=== PATIENT | female | born 1975 | race Asian ===

== ENCOUNTER → 2017-02-09 | Outpatient (CLI) | payer BC ==
[2017-02-09 10:15] LABS: Basophils # (auto) 0 uL; Basophils % (auto) 0.5 % (0.0-2.0); CONDITION Y; Eosinophils # (auto) 0.2 uL; Eosinophils % (auto) 2.8 % (0.0-7.0); Hematocrit 42.2 % (36.0-46.0); Hemoglobin 14.4 g/dL (12.2-16.2); Lymphocytes # (auto) 2.1 uL; Lymphocytes % (auto) 29.6 % (10.0-50.0); Mean Corpuscular Hemoglobin 28.2 pg (28.0-32.0); Mean Corpuscular Volume 82.8 fL (80.0-100.0); Mean Platelet Volume 9.3 fL (7.4-10.4); Monocytes # (auto) 0.4 uL; Monocytes % (auto) 6.4 % (0.0-12.0); Neutrophils # (auto) 4.2 uL; Neutrophils % (auto) 60.7 % (37.0-80.0); Platelet Count (auto) 317 10^3/uL (140-450); Red Cell Distribution Width 14.2 % (11.6-16.0); White Blood Cell 6.9 10^3/uL (4.4-10.8)
[2017-02-09 10:27] LABS: Urine Bilirubin Negative (Negative); Urine Blood Negative /uL (Negative); Urine Color Yellow (Yellow); Urine Glucose Normal (Normal); Urine Ketone Negative (Negative); Urine Nitrite Negative (Negative); Urine RBC 1 /hpf (0 - 4); Urine Squamous Epithelial Cell FEW /hpf (<5); Urine Urobilinogen Normal (Negative); Urine pH 7.5 (5.0-8.0)
[2017-02-09 10:45] LABS: BUN/Creatinine Ratio 15.9; Bilirubin, Total 0.9 mg/dL (0.2-1.0); Calcium 9.3 mg/dL (8.5-10.1); Potassium 4.3 mmol/L (3.5-5.1); Total Protein 7.8 g/dL (6.4-8.2)
== END | disposition home or self-care (01) ==
LOC: LAB 09:35
PROVIDERS: ATTEND Internal Medicine
DX: I10 Essential (primary) hypertension (principal); K59.00 Constipation, unspecified
CPT/HCPCS: 36415; 80053; 80061; 81001; 82043; 84439; 84443; 85025; 85652

== ENCOUNTER → 2018-10-23 | Outpatient (CLI) | payer BC ==
[2018-10-23 08:55] LABS: Basophils # (auto) 0 uL; Basophils % (auto) 0.6 % (0.0-2.0); Eosinophils # (auto) 0.2 uL; Eosinophils % (auto) 2.9 % (0.0-7.0); Hematocrit 42.5 % (36.0-46.0); Hemoglobin 14.6 g/dL (12.2-16.2); Lymphocytes # (auto) 2.4 uL; Lymphocytes % (auto) 33.8 % (10.0-50.0); Mean Corpuscular Hemoglobin 28.8 pg (28.0-32.0); Mean Corpuscular Hgb Conc. 34.4 g/dL (32.0-36.0); Mean Corpuscular Volume 83.8 fL (80.0-100.0); Monocytes # (auto) 0.5 uL; Monocytes % (auto) 6.4 % (0.0-12.0); Neutrophils % (auto) 56.3 % (37.0-80.0); Nucleated Red Blood Cells % 0.1 %; Platelet Count (auto) 312 10^3/uL (140-450); Red Blood Cells 5.07 10^6/uL (4.0-5.20); Red Cell Distribution Width 12.6 % (11.8-14.3); White Blood Cell 7.1 10^3/uL (4.4-10.8)
[2018-10-23 09:13] LABS: Urine Bacteria FEW /hpf (None Seen); Urine Blood Negative /uL (Negative); Urine Specific Gravity 1.014 (1.001-1.035); Urine WBC 1 /hpf (0 - 5)
[2018-10-23 09:25] LABS: Albumin 3.8 g/dL (3.4-5.0); Calcium 9.4 mg/dL (8.5-10.1); Potassium 4.4 mmol/L (3.5-5.1)
[2018-10-23 09:30] LABS: BUN/Creatinine Ratio 21.6; Bilirubin, Total 0.4 mg/dL (0.2-1.0)
[2018-10-23 09:37] LABS: Free T4 (Free Thyroxine) 1.17 ng/dL (0.89-1.76)
[2018-10-23 09:38] LABS: Follicle Stimulating Hormone 106.25 IU/L (SEE BELOW)
== END | disposition home or self-care (01) ==
LOC: LAB 08:43
PROVIDERS: ATTEND Internal Medicine
DX: N95.1 Menopausal and female climacteric states (principal); R51 Headache
CPT/HCPCS: 36415; 80053; 80061; 81001; 83001; 84439; 84443; 85025; 85652

== ENCOUNTER 2019-09-22 11:07 | Emergency (ER) | payer BC ==
[~2019-09-22] VITALS: Ht 167.6 cm; Wt 82.6 kg
[2019-09-22] MEDS ORDERED: MORPHINE SULF INJ 2 MG/ML SYRINGE 1ML IV ONE (11:30)
[2019-09-22] MEDS ORDERED: ONDANSETRON HCL 4 MG/2 ML VIAL IV ONE (11:30)
[2019-09-22] MEDS ORDERED: CARISOPRODOL 350 MG TAB PO ONE (11:30)
[2019-09-22 11:52] LABS: Basophils # (auto) 0 uL; Basophils % (auto) 0.4 % (0.0-2.0); Eosinophils # (auto) 0.2 uL; Eosinophils % (auto) 2.6 % (0.0-7.0); Hematocrit 40.6 % (36.0-46.0); Hemoglobin 13.9 g/dL (12.2-16.2); Lymphocytes # (auto) 3.1 uL; Lymphocytes % (auto) 35.8 % (10.0-50.0); Mean Corpuscular Hemoglobin 28.3 pg (28.0-32.0); Mean Corpuscular Hgb Conc. 34.3 g/dL (32.0-36.0); Mean Corpuscular Volume 82.7 fL (80.0-100.0); Monocytes # (auto) 0.6 uL; Monocytes % (auto) 6.8 % (0.0-12.0); Neutrophils # (auto) 4.7 uL; Neutrophils % (auto) 54.4 % (37.0-80.0); Nucleated Red Blood Cells % 0.1 %; Platelet Count (auto) 271 10^3/uL (140-450); Red Blood Cells 4.91 10^6/uL (4.0-5.20); Red Cell Distribution Width 13.3 % (11.8-14.3); White Blood Cell 8.7 10^3/uL (4.4-10.8)
[2019-09-22 12:08] LABS: Albumin 3.8 g/dL (3.4-5.0); Calcium 9.1 mg/dL (8.5-10.1); Potassium 4.3 mmol/L (3.5-5.1)
[2019-09-22 12:11] LABS: BUN/Creatinine Ratio 19.1; Bilirubin, Total 0.5 mg/dL (0.2-1.0); Total Protein 7.9 g/dL (6.4-8.2)
[2019-09-22] MEDS ORDERED: LORazepam 2MG/ML-1ML VIAL IV ONE (13:15)
[2019-09-22 13:31] LABS: INR 0.96 (0.9-1.15); Partial Thromboplastin Time 27.3 sec (23.64-32.05)
[2019-09-22 14:52] VITALS: BP 126/80
== END 2019-09-22 14:56 | disposition home or self-care (01) ==
LOC: EEVIPCON 11:07 → ER 11:07
DX: S86.912A Strain of unspecified muscle(s) and tendon(s) at lower leg level, left leg, initial encounter (principal); X58.XXXA Exposure to other specified factors, initial encounter; Y93.89 Activity, other specified; Y99.8 Other external cause status; Y92.89 Other specified places as the place of occurrence of the external cause
CPT/HCPCS: 36415; 72131; 73200; 80053; 83880; 84484; 85025; 85610; 85730; 93005; 93971; 96374; 96375; 99284; J2270; J2405

== ENCOUNTER → 2020-02-13 | Outpatient (CLI) | payer BC ==
[2020-02-13 09:18] LABS: Basophils # (auto) 0 10 ^3/uL (0-0.2); Basophils % (auto) 0.4 % (0.0-2.0); Eosinophils # (auto) 0.1 10 ^3/uL (0-0.8); Eosinophils % (auto) 2.4 % (0.0-7.0); Hematocrit 41.7 % (36.0-46.0); Hemoglobin 14.4 g/dL (12.2-16.2); Lymphocytes # (auto) 2.2 10 ^3/uL (0.4-5.4); Lymphocytes % (auto) 40.1 % (10.0-50.0); Mean Corpuscular Hemoglobin 28.5 pg (28.0-32.0); Mean Corpuscular Hgb Conc. 34.4 g/dL (32.0-36.0); Mean Corpuscular Volume 82.7 fL (80.0-100.0); Monocytes # (auto) 0.4 10 ^3/uL (0-1.3); Monocytes % (auto) 7.4 % (0.0-12.0); Neutrophils # (auto) 2.7 10 ^3/uL (1.6-8.6); Neutrophils % (auto) 49.7 % (37.0-80.0); Platelet Count (auto) 277 10^3/uL (140-450); Red Blood Cells 5.04 10^6/uL (4.0-5.20); Red Cell Distribution Width 13.2 % (11.8-14.3); White Blood Cell 5.4 10^3/uL (4.4-10.8)
[2020-02-13 09:40] LABS: Urine Bacteria MOD /hpf (None Seen); Urine Blood Negative /uL (Negative); Urine Specific Gravity 1.015 (1.001-1.035); Urine WBC 3 /hpf (0 - 5)
[2020-02-13 09:44] LABS: Albumin 3.9 g/dL (3.4-5.0); Calcium 9.5 mg/dL (8.5-10.1); Potassium 4.3 mmol/L (3.5-5.1)
[2020-02-13 09:50] LABS: BUN/Creatinine Ratio 18.9; Bilirubin, Total 0.5 mg/dL (0.2-1.0); Total Protein 7.8 g/dL (6.4-8.2)
== END | disposition home or self-care (01) ==
LOC: LAB 08:45
PROVIDERS: ATTEND Internal Medicine
DX: E55.9 Vitamin D deficiency, unspecified (principal); R53.83 Other fatigue; R35.1 Nocturia
CPT/HCPCS: 36415; 80053; 80061; 81001; 82306; 84439; 84443; 85025; 85652

== ENCOUNTER → 2020-03-01 | Outpatient (CLI) | payer OTHER | END | disposition home or self-care (01) | LOC: LAB 17:10 | PROVIDERS: ATTEND Physician Assistant | DX: Z20.828 Contact with and (suspected) exposure to other viral communicable diseases (principal) | CPT/HCPCS: 87635 ==

== ENCOUNTER → 2020-06-30 | Outpatient (CLI) | payer OTHER ==
[2020-06-30 14:00] LABS: Folate (Folic Acid) 12.16 ng/mL (5.38-24)
== END | disposition home or self-care (01) ==
LOC: LAB 12:24
PROVIDERS: ATTEND Internal Medicine
DX: D64.9 Anemia, unspecified (principal)
CPT/HCPCS: 82607; 82746

== ENCOUNTER → 2020-07-01 | Outpatient (CLI) | payer OTHER | END | disposition home or self-care (01) | LOC: LAB 12:15 | PROVIDERS: ATTEND Nurse Practitioner Family | DX: Z20.828 Contact with and (suspected) exposure to other viral communicable diseases (principal) | CPT/HCPCS: C9803; U0003 ==

== ENCOUNTER → 2020-07-07 | Outpatient (CLI) | payer OTHER | END | disposition home or self-care (01) | LOC: LAB 18:08 | PROVIDERS: ATTEND Nurse Practitioner Family | DX: Z20.828 Contact with and (suspected) exposure to other viral communicable diseases (principal) | CPT/HCPCS: C9803; U0003 ==

== ENCOUNTER → 2020-07-07 | Outpatient (CLI) | payer BC ==
[2020-07-07 14:55] LABS: Basophils # (auto) 0.1 10 ^3/uL (0-0.2); Basophils % (auto) 0.6 % (0.0-2.0); Eosinophils # (auto) 0.2 10 ^3/uL (0-0.8); Eosinophils % (auto) 1.9 % (0.0-7.0); Hematocrit 43.6 % (36.0-46.0); Hemoglobin 15.1 g/dL (12.2-16.2); Lymphocytes # (auto) 3.8 10 ^3/uL (0.4-5.4); Lymphocytes % (auto) 36.8 % (10.0-50.0); Mean Corpuscular Hemoglobin 28.6 pg (28.0-32.0); Mean Corpuscular Hgb Conc. 34.7 g/dL (32.0-36.0); Mean Corpuscular Volume 82.7 fL (80.0-100.0); Monocytes # (auto) 0.7 10 ^3/uL (0-1.3); Neutrophils # (auto) 5.5 10 ^3/uL (1.6-8.6); Neutrophils % (auto) 53.7 % (37.0-80.0); Nucleated Red Blood Cells % 0.1 %; Platelet Count (auto) 336 10^3/uL (140-450); Red Blood Cells 5.27 10^6/uL (4.0-5.20); Red Cell Distribution Width 12.9 % (11.8-14.3); White Blood Cell 10.3 10^3/uL (4.4-10.8)
[2020-07-07 15:23] LABS: Albumin 4.1 g/dL (3.4-5.0); CRP High Sensitivity 0.13 mg/dL (< 0.3); Calcium 9.5 mg/dL (8.5-10.1); Potassium 4.4 mmol/L (3.5-5.1)
[2020-07-07 15:26] LABS: BUN/Creatinine Ratio 17.8; Bilirubin, Total 0.6 mg/dL (0.2-1.0); Total Protein 8.6 g/dL (6.4-8.2)
== END | disposition home or self-care (01) ==
LOC: LAB 14:42
PROVIDERS: ATTEND Internal Medicine
DX: J40 Bronchitis, not specified as acute or chronic (principal)
CPT/HCPCS: 36415; 80053; 83615; 85025; 86141; 87804

== ENCOUNTER → 2021-09-01 | Outpatient (CLI) | payer BC | END | disposition home or self-care (01) | LOC: LAB 09:24 | PROVIDERS: ATTEND Physician Assistant | DX: U07.1 COVID-19 (principal) | CPT/HCPCS: C9803; U0003 ==

== ENCOUNTER 2021-09-08 10:18 | Inpatient (IN) | payer BC ==
[~2021-09-08] VITALS: Ht 170.2 cm; Wt 83.7 kg
[2021-09-08 11:42] LABS: Basophils # (auto) 0 10 ^3/uL (0-0.2); Basophils % (auto) 0.6 % (0.0-2.0); Eosinophils # (auto) 0.1 10 ^3/uL (0-0.8); Eosinophils % (auto) 1.8 % (0.0-7.0); Hematocrit 40.5 % (36.0-46.0); Hemoglobin 14.1 g/dL (12.2-16.2); Lymphocytes # (auto) 1.7 10 ^3/uL (0.4-5.4); Lymphocytes % (auto) 24.4 % (10.0-50.0); Mean Corpuscular Hemoglobin 28.6 pg (28.0-32.0); Mean Corpuscular Hgb Conc. 34.8 g/dL (32.0-36.0); Mean Corpuscular Volume 82.2 fL (80.0-100.0); Monocytes # (auto) 0.3 10 ^3/uL (0-1.3); Monocytes % (auto) 4.7 % (0.0-12.0); Neutrophils # (auto) 4.7 10 ^3/uL (1.6-8.6); Neutrophils % (auto) 68.5 % (37.0-80.0); Nucleated Red Blood Cells % 0.1 %; Red Blood Cells 4.93 10^6/uL (4.0-5.20); Red Cell Distribution Width 13.1 % (11.8-14.3); White Blood Cell 6.9 10^3/uL (4.4-10.8)
[2021-09-08 11:51] LABS: Potassium 4.3 mmol/L (3.5-5.1)
[2021-09-08 12:00] LABS: Albumin 3.8 g/dL (3.4-5.0); BUN/Creatinine Ratio 14.5; Bilirubin, Total 0.4 mg/dL (0.2-1.0); Calcium 9.3 mg/dL (8.5-10.1); Total Protein 7.8 g/dL (6.4-8.2)
[2021-09-08] MEDS ORDERED: cloNIDine HCL 0.1 MG TAB PO ONE (12:15)
[2021-09-08] MEDS ORDERED: ONDANSETRON ODT 4 MG TAB PO ONE (12:15)
[2021-09-08] MEDS ORDERED: SODIUM CHLORIDE 0.9% 500 ML IV ONE (12:45)
[2021-09-08] MEDS ORDERED: HYDROcodone-ACET 5/325MG TAB PO PRN (13:00)
[2021-09-08] MEDS ORDERED: MORPHINE SULFATE INJECTION 2 MG/ML SYRG IV PRN (13:00)
[2021-09-08] MEDS ORDERED: LORazepam 0.5 MG TAB PO PRN (13:00)
[2021-09-08] MEDS ORDERED: ALUM & MAG HYDROX-SIMETH LIQ(MAALOX) 30 ML PO PRN (13:00)
[2021-09-08] MEDS ORDERED: cloNIDine HCL 0.1 MG TAB PO PRN (13:00)
[2021-09-08] MEDS ORDERED: hydrALAZINE HCL 20 MG/ML VL IV PRN (13:00)
[2021-09-08] MEDS: SODIUM CHLOR 0.9% PF (SALINE LOCK) 10ML VIAL/SYR IV SCH ×2 (15:10→22:09)
[2021-09-08] MEDS: ONDANSETRON HCL 4 MG/2 ML VIAL IV PRN ×2 (15:19→21:59)
[2021-09-08] MEDS ORDERED: ASCORBIC ACID 500 MG TAB PO ONE (17:30)
[2021-09-08] MEDS ORDERED: CHOLECALCIFEROL (VITD3) 2,000 UNIT CAP/TAB PO ONE (17:30)
[2021-09-08] MEDS ORDERED: LISINOPRIL 10 MG TAB PO ONE (17:30)
[2021-09-08] MEDS ORDERED: MECLIZINE HCL 25 MG TAB PO ONE (17:30)
[2021-09-08 21:25] VITALS: BP 147/90
[2021-09-09 05:00] VITALS: BP 116/73
[2021-09-09 05:53] LABS: Basophils # (auto) 0 10 ^3/uL (0-0.2); Basophils % (auto) 0.4 % (0.0-2.0); Eosinophils # (auto) 0.2 10 ^3/uL (0-0.8); Eosinophils % (auto) 1.8 % (0.0-7.0); Hematocrit 38.2 % (36.0-46.0); Lymphocytes # (auto) 2.9 10 ^3/uL (0.4-5.4); Lymphocytes % (auto) 34.3 % (10.0-50.0); Mean Corpuscular Volume 82.5 fL (80.0-100.0); Monocytes # (auto) 0.6 10 ^3/uL (0-1.3); Monocytes % (auto) 6.8 % (0.0-12.0); Neutrophils # (auto) 4.8 10 ^3/uL (1.6-8.6); Neutrophils % (auto) 56.7 % (37.0-80.0); Red Blood Cells 4.63 10^6/uL (4.0-5.20); Red Cell Distribution Width 12.9 % (11.8-14.3); White Blood Cell 8.4 10^3/uL (4.4-10.8)
[2021-09-09] MEDS: SODIUM CHLOR 0.9% PF (SALINE LOCK) 10ML VIAL/SYR IV SCH ×3 (06:10→21:56)
[2021-09-09 06:36] LABS: Calcium 8.8 mg/dL (8.5-10.1); Potassium 3.7 mmol/L (3.5-5.1)
[2021-09-09 06:38] LABS: BUN/Creatinine Ratio 17.1
[2021-09-09 07:28] LABS: Urine Bacteria MOD /hpf (None Seen); Urine Blood Negative /uL (Negative); Urine Mucus FEW (None Seen); Urine Specific Gravity 1.013 (1.001-1.035); Urine WBC 36 /hpf (0 - 5)
[2021-09-09 09:00] VITALS: BP 130/90
[2021-09-09] MEDS ORDERED: MECLIZINE HCL 25 MG TAB PO SCH (10:00)
[2021-09-09] MEDS ORDERED: LISINOPRIL 10 MG TAB PO SCH (10:00)
[2021-09-09] MEDS: CHOLECALCIFEROL (VITD3) 2,000 UNIT CAP/TAB PO SCH (10:33)
[2021-09-09] MEDS: ASCORBIC ACID 500 MG TAB PO SCH (10:33)
[2021-09-09 13:00] VITALS: BP 145/101
[2021-09-09] MEDS ORDERED: ERGOCALCIFEROL 50,000 UNIT(1.25MG) CAP PO SCH (13:30)
[2021-09-09] MEDS ORDERED: HCTZ 25 MG TAB PO ONE (13:30)
[2021-09-09] MEDS ORDERED: levoFLOXacin 500 MG TAB PO ONE (13:30)
[2021-09-09] MEDS: MECLIZINE HCL 25 MG TAB PO SCH ×2 (15:12→21:56)
[2021-09-09 17:00] VITALS: BP 127/88
[2021-09-09 22:00] VITALS: BP 113/71
[2021-09-10 05:00] VITALS: BP 129/66
[2021-09-10] MEDS: SODIUM CHLOR 0.9% PF (SALINE LOCK) 10ML VIAL/SYR IV SCH ×3 (06:00→20:55)
[2021-09-10] MEDS: MECLIZINE HCL 25 MG TAB PO SCH ×3 (06:30→20:56)
[2021-09-10] MEDS: ACETAMINOPHEN 325 MG TAB PO PRN ×2 (08:43→14:28)
[2021-09-10 09:00] VITALS: BP 126/86
[2021-09-10] MEDS: ASCORBIC ACID 500 MG TAB PO SCH (10:20)
[2021-09-10] MEDS: CHOLECALCIFEROL (VITD3) 2,000 UNIT CAP/TAB PO SCH (10:20)
[2021-09-10] MEDS: levoFLOXacin 500 MG TAB PO SCH (10:21)
[2021-09-10] MEDS: LISINOPRIL 10 MG TAB PO SCH (10:21)
[2021-09-10] MEDS: HCTZ 25 MG TAB PO SCH (10:22)
[2021-09-10 13:00] VITALS: BP 118/84
[2021-09-10 16:48] VITALS: BP 118/82
[2021-09-10 22:00] VITALS: BP 119/82
[2021-09-11] MEDS: ACETAMINOPHEN 325 MG TAB PO PRN (04:19)
[2021-09-11 05:00] VITALS: BP 126/86
[2021-09-11] MEDS: SODIUM CHLOR 0.9% PF (SALINE LOCK) 10ML VIAL/SYR IV SCH ×2 (06:18→13:34)
[2021-09-11] MEDS: MECLIZINE HCL 25 MG TAB PO SCH ×2 (06:19→13:34)
[2021-09-11 09:00] VITALS: BP 123/85
[2021-09-11] MEDS: levoFLOXacin 500 MG TAB PO SCH (09:56)
[2021-09-11] MEDS: LISINOPRIL 10 MG TAB PO SCH (09:57)
[2021-09-11] MEDS: HCTZ 25 MG TAB PO SCH (09:57)
[2021-09-11] MEDS: CHOLECALCIFEROL (VITD3) 2,000 UNIT CAP/TAB PO SCH (09:58)
[2021-09-11] MEDS: ASCORBIC ACID 500 MG TAB PO SCH (09:58)
[2021-09-11 12:40] VITALS: BP 128/81
[2021-09-11 14:15] VITALS: BP 117/85
[2021-09-11 16:21] VITALS: BP 123/85
== END 2021-09-11 18:10 | disposition home or self-care (01) | DRG 178 ==
LOC: EEVIPCON 10:18 → ER 10:18 → TELE 12:50 → TELE-WESTW 21:19 → TELE-CENTR 21:24 → TELE-WESTW 09-09 05:07
PROVIDERS: ADMIT Internal Medicine; ATTEND Internal Medicine
DX: U07.1 COVID-19 (principal); N39.0 Urinary tract infection, site not specified; I10 Essential (primary) hypertension; F41.9 Anxiety disorder, unspecified; H81.10 Benign paroxysmal vertigo, unspecified ear; H81.20 Vestibular neuronitis, unspecified ear; Z82.49 Family history of ischemic heart disease and other diseases of the circulatory system
CPT/HCPCS: 36415; 70450; 71045; 80048; 80053; 81001; 82306; 83036; 84443; 84484; 85025; 87426; 93306; 96360; G0378; J2405; Q0162

== ENCOUNTER → 2022-05-29 | Outpatient (CLI) | payer BC ==
[2022-05-29 15:25] LABS: Basophils # (auto) 0.1 10 ^3/uL (0-0.2); Eosinophils # (auto) 0.2 10 ^3/uL (0-0.8); Eosinophils % (auto) 2.8 % (0.0-7.0); Hematocrit 43.1 % (36.0-46.0); Hemoglobin 14.6 g/dL (12.2-16.2); Lymphocytes # (auto) 3.1 10 ^3/uL (0.4-5.4); Lymphocytes % (auto) 37.4 % (10.0-50.0); Mean Corpuscular Hemoglobin 27.9 pg (28.0-32.0); Mean Corpuscular Hgb Conc. 33.9 g/dL (32.0-36.0); Mean Corpuscular Volume 82.2 fL (80.0-100.0); Monocytes # (auto) 0.6 10 ^3/uL (0-1.3); Monocytes % (auto) 7.3 % (0.0-12.0); Neutrophils # (auto) 4.3 10 ^3/uL (1.6-8.6); Neutrophils % (auto) 51.5 % (37.0-80.0); Nucleated Red Blood Cells % 0.1 %; Red Blood Cells 5.24 10^6/uL (4.0-5.20); White Blood Cell 8.3 10^3/uL (4.4-10.8)
[2022-05-29 15:48] LABS: Albumin 3.9 g/dL (3.4-5.0); Calcium 9.1 mg/dL (8.5-10.1); Potassium 4.6 mmol/L (3.5-5.1)
[2022-05-29 15:50] LABS: BUN/Creatinine Ratio 19.4
[2022-05-29 15:53] LABS: Bilirubin, Total 0.5 mg/dL (0.2-1.0); Total Protein 7.7 g/dL (6.4-8.2)
[2022-05-29 16:21] LABS: Free T4 (Free Thyroxine) 1.17 ng/dL (0.89-1.76)
[2022-05-29 16:22] LABS: Folate (Folic Acid) 22.21 ng/mL (5.38-24)
== END | disposition home or self-care (01) ==
LOC: LAB 15:12
PROVIDERS: ATTEND Internal Medicine
DX: I10 Essential (primary) hypertension (principal)
CPT/HCPCS: 36415; 80053; 82306; 82607; 82746; 84439; 84443; 85025

== ENCOUNTER → 2022-08-01 | Outpatient (CLI) | payer BC | END | disposition home or self-care (01) | LOC: XYW 07:32 | PROVIDERS: ATTEND Internal Medicine | DX: I08.0 Rheumatic disorders of both mitral and aortic valves (principal); R06.02 Shortness of breath; R07.89 Other chest pain | CPT/HCPCS: 93306 ==

== ENCOUNTER → 2022-11-28 | Outpatient (CLI) | payer BC ==
[2022-11-28 14:40] LABS: Basophils # (auto) 0 10 ^3/uL (0-0.2); Basophils % (auto) 0.6 % (0.0-2.0); Eosinophils # (auto) 0.2 10 ^3/uL (0-0.8); Eosinophils % (auto) 2.2 % (0.0-7.0); Hematocrit 40.8 % (36.0-46.0); Lymphocytes # (auto) 3.1 10 ^3/uL (0.4-5.4); Lymphocytes % (auto) 37.6 % (10.0-50.0); Mean Corpuscular Hemoglobin 28.7 pg (28.0-32.0); Mean Corpuscular Hgb Conc. 34.4 g/dL (32.0-36.0); Mean Corpuscular Volume 83.3 fL (80.0-100.0); Monocytes # (auto) 0.6 10 ^3/uL (0-1.3); Neutrophils # (auto) 4.3 10 ^3/uL (1.6-8.6); Neutrophils % (auto) 52.6 % (37.0-80.0); Nucleated Red Blood Cells % 0.4 %; Red Blood Cells 4.89 10^6/uL (4.0-5.20); Red Cell Distribution Width 13.7 % (11.8-14.3); White Blood Cell 8.2 10^3/uL (4.4-10.8)
[2022-11-28 15:10] LABS: Follicle Stimulating Hormone 70.56 IU/L (SEE BELOW); Leuteinizing Hormone 38.8 IU/L
== END | disposition home or self-care (01) ==
LOC: LAB 14:05
PROVIDERS: ATTEND Obstetrics & Gynecology
DX: N95.1 Menopausal and female climacteric states (principal)
CPT/HCPCS: 36415; 82652; 82670; 83001; 83002; 84403; 84443; 85025

== ENCOUNTER → 2023-06-27 | Outpatient (CLI) | payer BC ==
[2023-06-27 08:46] LABS: Basophils # (auto) 0 10 ^3/uL (0-0.2); Basophils % (auto) 0.7 % (0.0-2.0); Eosinophils # (auto) 0.2 10 ^3/uL (0-0.8); Eosinophils % (auto) 3.4 % (0.0-7.0); Hematocrit 41.1 % (36.0-46.0); Hemoglobin 14.2 g/dL (12.2-16.2); Lymphocytes # (auto) 2.7 10 ^3/uL (0.4-5.4); Lymphocytes % (auto) 38.4 % (10.0-50.0); Mean Corpuscular Hemoglobin 28.2 pg (28.0-32.0); Mean Corpuscular Hgb Conc. 34.5 g/dL (32.0-36.0); Mean Corpuscular Volume 81.8 fL (80.0-100.0); Monocytes # (auto) 0.4 10 ^3/uL (0-1.3); Monocytes % (auto) 6.2 % (0.0-12.0); Neutrophils # (auto) 3.7 10 ^3/uL (1.6-8.6); Neutrophils % (auto) 51.3 % (37.0-80.0); Nucleated Red Blood Cells % 0.1 %; Red Blood Cells 5.03 10^6/uL (4.0-5.20); Red Cell Distribution Width 12.9 % (11.8-14.3); White Blood Cell 7.2 10^3/uL (4.4-10.8)
[2023-06-27 08:51] LABS: Urine Bacteria NONE SEEN /hpf (None Seen); Urine Blood Negative /uL (Negative); Urine Clarity HAZY (Clear); Urine Color Yellow (Yellow); Urine Hyaline Cast FEW /lpf (0 - 2); Urine Mucus FEW (None Seen); Urine Protein, UAD Negative (Negative); Urine Specific Gravity 1.021 (1.001-1.035); Urine Urobilinogen Normal (Negative); Urine WBC 4 /hpf (0 - 5)
[2023-06-27 09:31] LABS: Alanine Aminotransferase 65 U/L (7-40); Albumin 4.6 g/dL (3.2-4.8); Alkaline Phosphatase 130 U/L (46-116); Anion Gap 7 (5-15); Aspartate Aminotransferase 23 U/L (13-40); BUN/Creatinine Ratio 21.2 (10.0-20.0); Blood Urea Nitrogen 14 mg/dL (9-23); Calcium 9.6 mg/dL (8.5-10.1); Carbon Dioxide 24 mmol/L (20-30); Chloride 108 mmol/L (98-107); Glucose 98 mg/dL (74-106); LDL Cholesterol 134 mg/dL (< 100); Potassium 4.3 mmol/L (3.5-5.1); Sodium 139 mmol/L (136-145); Triglycerides 149 mg/dL (< 150)
[2023-06-27 09:32] LABS: Bilirubin, Total 0.6 mg/dL (0.2-1.0); Cholesterol 195 mg/dL (< 200); HDL Cholesterol 45 mg/dL (40-59); Total Protein 7.4 g/dL (5.7-8.2)
[2023-06-27 09:35] LABS: Free T4 (Free Thyroxine) 1.07 ng/dL (0.89-1.76)
== END | disposition home or self-care (01) ==
LOC: LAB 08:37
PROVIDERS: ATTEND Internal Medicine
DX: I10 Essential (primary) hypertension (principal)
CPT/HCPCS: 36415; 80053; 80061; 81001; 82306; 82607; 83036; 84439; 84443; 85025

== ENCOUNTER → 2024-03-07 | Outpatient (CLI) | payer BC ==
[2024-03-07 08:56] LABS: Urine Bacteria None Seen /hpf (None Seen)
[2024-03-07 09:09] LABS: Basophils # (auto) 0.1 10 ^3/uL (0-0.2); Basophils % (auto) 0.8 % (0.0-2.0); Eosinophils # (auto) 0.2 10 ^3/uL (0-0.8); Eosinophils % (auto) 2.8 % (0.0-7.0); Hematocrit 40.8 % (36.0-46.0); Hemoglobin 14.2 g/dL (12.2-16.2); Lymphocytes # (auto) 2.4 10 ^3/uL (0.4-5.4); Lymphocytes % (auto) 34.6 % (10.0-50.0); Mean Corpuscular Hemoglobin 28.1 pg (28.0-32.0); Mean Corpuscular Hgb Conc. 34.8 g/dL (32.0-36.0); Mean Corpuscular Volume 80.7 fL (80.0-100.0); Monocytes # (auto) 0.4 10 ^3/uL (0-1.3); Monocytes % (auto) 6.2 % (0.0-12.0); Neutrophils # (auto) 3.8 10 ^3/uL (1.6-8.6); Neutrophils % (auto) 55.6 % (37.0-80.0); Nucleated Red Blood Cells % 0.1 %; Red Blood Cells 5.05 10^6/uL (4.0-5.20); White Blood Cell 6.8 10^3/uL (4.4-10.8)
[2024-03-07 09:17] LABS: Urine Blood Negative /uL (Negative); Urine Clarity Clear (Clear); Urine Color Yellow (Yellow); Urine Mucus FEW (None Seen); Urine Protein, UAD Negative (Negative); Urine Specific Gravity 1.018 (1.001-1.035); Urine Urobilinogen Normal (Negative); Urine WBC 1 /hpf (0 - 5); Urine pH 5.5 (5.0-9.0)
[2024-03-07 09:32] LABS: Alanine Aminotransferase 31 U/L (7-40); Albumin 4.7 g/dL (3.2-4.8); Alkaline Phosphatase 138 U/L (46-116); Anion Gap 7 (5-15); Aspartate Aminotransferase 17 U/L (13-40); BUN/Creatinine Ratio 15.5 (10.0-20.0); Blood Urea Nitrogen 11 mg/dL (9-23); Calcium 10.1 mg/dL (8.7-10.4); Carbon Dioxide 24 mmol/L (20-30); Chloride 107 mmol/L (98-107); Cholesterol 206 mg/dL (< 200); Glucose 105 mg/dL (74-106); LDL Cholesterol 141 mg/dL (< 100); Potassium 4.3 mmol/L (3.5-5.1); Sodium 138 mmol/L (136-145); Triglycerides 169 mg/dL (< 150)
[2024-03-07 09:33] LABS: Bilirubin, Total 0.7 mg/dL (0.2-1.0); HDL Cholesterol 48 mg/dL (40-59); Total Protein 7.3 g/dL (5.7-8.2)
[2024-03-07 10:30] LABS: Folate (Folic Acid) 17.01 ng/mL (>5.38)
== END | disposition home or self-care (01) ==
LOC: LAB 08:22
PROVIDERS: ATTEND Internal Medicine
DX: Z12.11 Encounter for screening for malignant neoplasm of colon (principal); I10 Essential (primary) hypertension; E78.5 Hyperlipidemia, unspecified; R06.02 Shortness of breath; E55.9 Vitamin D deficiency, unspecified
CPT/HCPCS: 36415; 80053; 80061; 81001; 82306; 82607; 82746; 83036; 83525; 83880; 84443; 85025; 85379

== ENCOUNTER → 2024-03-11 | Outpatient (CLI) | payer BC | END | disposition home or self-care (01) | LOC: XYW 07:38 | PROVIDERS: ATTEND Internal Medicine | DX: I08.0 Rheumatic disorders of both mitral and aortic valves (principal); I10 Essential (primary) hypertension; R06.02 Shortness of breath | CPT/HCPCS: 93306 ==

== ENCOUNTER → 2024-05-21 | Outpatient (CLI) | payer BC ==
[2024-05-21 15:13] LABS: Alanine Aminotransferase 39 U/L (7-40); Alkaline Phosphatase 135 U/L (46-116); Anion Gap 8 (5-15); BUN/Creatinine Ratio 15.1 (10.0-20.0); Blood Urea Nitrogen 11 mg/dL (9-23); Calcium 9.7 mg/dL (8.7-10.4); Carbon Dioxide 27 mmol/L (20-31); Chloride 105 mmol/L (98-107); Glucose 138 mg/dL (74-106); Potassium 3.9 mmol/L (3.5-5.1); Sodium 140 mmol/L (136-145)
[2024-05-21 15:14] LABS: Albumin 4.6 g/dL (3.2-4.8); Amylase 52 U/L (30-118); Aspartate Aminotransferase 19 U/L (13-40)
[2024-05-21 15:15] LABS: Bilirubin, Total 0.6 mg/dL (0.2-1.0); Total Protein 7.4 g/dL (5.7-8.2)
[2024-05-21 15:39] LABS: Lipase 71 U/L (12-53)
== END | disposition home or self-care (01) ==
LOC: LAB 13:30
PROVIDERS: ATTEND Internal Medicine
DX: R10.9 Unspecified abdominal pain (principal)
CPT/HCPCS: 36415; 80053; 82150; 83690

== ENCOUNTER 2024-06-30 08:13 | Inpatient (IN) | payer BC ==
[~2024-06-30] VITALS: Ht 165.1 cm; Wt 93.0 kg
--- NOTE | 2024-06-30 08:32 | ED.PDOC ---
History of Present Illness HPI Comments 49Y F with PMHx HTN, TIA, vertigo, x2, and endometrial ablation presents to ED via EMS for chief complaint dizziness since this morning after waking up. Pt states she feels fine while laying down but is unable to get up without feeling the dizziness. Pt describes dizziness as "everything spinning a round her". Upon EMS arrival, pt became nauseous and was given Zofran 4mg by EMS. BP was 140/80 with EMS. Pt says she felt fine yesterday and went to sleep without any symptoms. Pt denies headache. No known allergies. Chief Complaint: Dizziness Time Seen by MD: 08:16 Primary Care Provider: GUILLERMO Smith Notes: Medications, Allergies Allergies: Coded Allergies: NO KNOWN ALLERGIES (Unverified , 08/29/22) Home Meds No Active Prescriptions or Reported Meds Information Source: Patient Mode of Arrival: EMS Severity: Mild Timing: Hours Duration: Since onset Prehospital treatment: Other (zofran 4mg) Past Medical History PAST MEDICAL HISTORY: HTN, TIA Past Medical History (Other): Vertigo Surgical History: Denies all surgeries MANAGER REVENUE History: No Pertinent MANAGER REVENUE History Family History Family History: Reviewed,noncontributory to illness, Family hx of HTN Social History Smoker: Non-Smoker Alcohol: Denies ETOH Use Drugs: Denies Drug Use Lives In: Home Constitutional: denies: chills, diaphoresis, fatigue, fever, malaise, sweats, weakness, others EENTM: denies: blurred vision, double vision, ear bleeding, ear discharge, ear drainage, ear pain, ear ringing, eye pain, eye redness, hearing loss, mouth pain, mouth swelling, nasal discharge, nose bleeding, nose congestion, nose pain, photophobia, tearing, throat pain, throat swelling, voice changes, others Respiratory: denies: cough, hemoptysis, orthopnea, SOB at rest, shortness of breath, SOB with excertion, stridor, wheezing, others Cardiovascular: denies: chest pain, dizzy spells, diaphoresis, Dyspnea on exertion, edema, irregular heart beat, left arm pain, lightheadedness, palpitations, PND, syncope, others Gastrointestinal: reports: nausea; denies: abdomen distended, abdominal pain, blood streaked bowels, constipated, diarrhea, dysphagia, difficulty swallowing, hematemesis, melena, poor appetite, poor fluid intake, rectal bleeding, rectal pain, vomiting, others Genitourinary: denies: abnormal vagina bleeding, burning, dyspareunia, dysuria, flank pain, frequency, hematuria, incontinence, pain, , vagina discharge, urgency, others Neurological: reports: dizziness; denies: fainting, headache, left sided numbness, left sided weakness, numbness, paresthesia, pre-existing deficit, right sided numbness, right sided weakness, seizure, speech problems, tingling, tremors, weakness, others Musculoskeletal: denies: back pain, gout, joint pain, joint swelling, muscle pain, muscle stiffness, neck pain, others Integumetry: denies: bruises, change in color, change in hair/nails, dryness, laceration, lesions, lumps, rash, wounds, others Allergic/Immunocompromised: denies: Difficulty Healing, Frequent Infections, Hives, Itching, others Hematologic/Lymphatic: denies: anemia, blood clots, easy bleeding, easy bruising, swollen glands, others Endocrine: denies: excessive hunger, excessive sweating, excessive thirst, excessive urination, flushing, intolerance to cold, intolerance to heat, unexplained weight gain, unexplained weight loss, others Psychiatric: denies: anxiety, bipolar disorder, depression, hopeless, panic disorder, schizophrenia, sleepless, suicidal, others All Other Systems: Reviewed and Negative Physical Exam General Appearance: Moderate Distress, Normal HEENT: Normal ENT Inspection, Pharynx Normal, TMs Normal Neck: Full Range of Motion, Non-Tender, Normal, Normal Inspection Respiratory: Chest Non-Tender, Lungs Clear, No Accessory Muscle Use, No Respiratory Distress, Normal Breath Sounds Cardiovascular: No Edema, No JVD, No Murmur, No Gallop, Normal Peripheral Pulses, Regular Rate/Rhythm Breast Exam: Deferred Gastrointestinal: No Organomegaly, Non Tender, No Pulsatile Mass, Normal Bowel Sounds, Soft Genitalia: Deferred Pelvic: Deferred Rectal: Deferred Extremities: No calf tenderness, Normal capillary refill, Normal inspection, Normal range of motion, Non-tender, No pedal edema Musculoskeletal : Apperance: Normal Neurologic: Alert, No Motor Deficits, Normal Affect, Normal Mood, No Sensory Deficits Cerebellar Function: NOT DONE Reflexes: NOT DONE Skin: Dry, Normal Color, Warm Peripheral Pulses: 3+ Radial (R), 3+ Radial (L) Lymphatic: No Adenopathy Was a procedure done? Was a procedure done?: No Differential Dx Considerations may include: TIA Autonomic disorder X-Ray, Labs, Meds, VS Vital Signs Date Time Temp Pulse Resp B/P (MAP) Pulse Ox O2 Delivery O2 Flow Rate FiO2 06/30/24 08:48 77 19 97 Room Air* 0 21 06/30/24 08:48 77 19 134/80 (98) 97 06/30/24 08:16 75 06/30/24 08:15 98.6 77 18 158/103 (121) 100 Lab Test 06/30/24 09:40 06/30/24 08:36 Range/Units Urine Color Light-yellow Yellow Urine Clarity Clear Clear Urine pH 6.0 5.0-9.0 Urine Specific [place] 1.009 1.001-1.035 Urine Protein Negative Negative Urine Ketones Negative Negative Urine Blood Negative Negative /uL Urine Nitrite Negative Negative Urine Bilirubin Negative Negative Urine Urobilinogen Normal Negative mg/dL Urine Leukocyte Esterase Negative Negative /uL Urine RBC <1 0 - 4 /hpf Urine WBC 2 0 - 5 /hpf Urine Squamous Epithelial Cells Few <5 /hpf Urine Bacteria None seen None Seen /hpf Urine Glucose Normal Normal mg/dL White Blood Count 6.8 4.4-10.8 10^3/uL Red Blood Count 5.24 H 4.0-5.20 10^6/uL Hemoglobin 14.4 12.2-16.2 g/dL Hematocrit 42.8 36.0-46.0 % Mean Corpuscular Volume 81.7 80.0-100.0 fL Mean Corpuscular Hemoglobin 27.4 L 28.0-32.0 pg Mean Corpuscular Hemoglobin Concent 33.5 32.0-36.0 g/dL Red Cell Distribution Width 13.9 11.8-14.3 % Platelet Count 299 140-450 10^3/uL Mean Platelet Volume 8.5 6.9-10.8 fL Neutrophils (%) (Auto) 56.6 37.0-80.0 % Lymphocytes (%) (Auto) 32.7 10.0-50.0 % Monocytes (%) (Auto) 6.4 0.0-12.0 % Eosinophils (%) (Auto) 3.6 0.0-7.0 % Basophils (%) (Auto) 0.7 0.0-2.0 % Neutrophils # (Auto) 3.8 1.6-8.6 10 ^3/uL Lymphocytes # (Auto) 2.2 0.4-5.4 10 ^3/uL Monocytes # (Auto) 0.4 0-1.3 10 ^3/uL Eosinophils # (Auto) 0.2 0-0.8 10 ^3/uL Basophils # (Auto) 0 0-0.2 10 ^3/uL Nucleated Red Blood Cells 0.1 % Sodium Level 138 136-145 mmol/L Potassium Level 4.3 3.5-5.1 mmol/L Chloride Level 107 98-107 mmol/L Carbon Dioxide Level 26 20-31 mmol/L Anion Gap 5 5-15 Blood Urea Nitrogen 12 9-23 mg/dL Creatinine 0.76 0.550-1.02 mg/dL Glomerular Filtration Rate Calc 95 >90 mL/min BUN/Creatinine Ratio 15.8 10.0-20.0 Serum Glucose 100 74-106 mg/dL Calcium Level 10.4 8.7-10.4 mg/dL Current Medications Medications (Trade) Dose Ordered Sig/Fadia Route Start Time Stop Time Status Last Admin Sodium Chloride 1,000 ml @ 1,000 mls/hr Q1H ONCE IV 06/30/24 08:30 06/30/24 09:29 DC 06/30/24 08:52 Lorazepam (Ativan Inj) 1 mg ONCE ONCE IV 06/30/24 08:30 06/30/24 08:31 DC 06/30/24 08:52 Meclizine HCl (Antivert Tablet) 50 mg ONCE ONCE PO 06/30/24 10:30 06/30/24 10:31 DC 06/30/24 10:24 [place] [id number] Ph: [phone] DIAGNOSTIC IMAGING Diagnostic Imaging Report : [id number] Signed PATIENT: LOLLY LLOYD ACCT: [id number] UNIT: [id number] : 1975 LOC: ER ROOM / BED: / AGE / SEX: 49 / F ADM STATUS: REG ER SERVICE 6 ORDERING PHYSICIAN: GEOFF MILLAN MD PROCEDURE(s): HWOCT - HEAD WITHOUT CONTRAST REASON: tia ORDER NUMBER(s): [id number], ACCESSION NUMBER(s): [id number] EXAM: CT HEAD WITHOUT CONTRAST INDICATION: tia TECHNIQUE: CT of the head without intravenous contrast. Radiation Dose Information: CT Dose: CTDI volume is 59.79 mGy. Dose-length product is 1058.56 mGy*cm The dose indicators for CT are the volume Computed Tomography (CT) Dose Index (CTDIvol) and the Dose Length Product (DLP), and are measured in units of mGy and mGy-cm, respectively. These indicators are not patient dose, but values generated from the CT scanner acquisition factors. The report includes radiation exposure data for exposures received during this examination. COMPARISON: HEAD WITHOUT CONTRAST on DOS: 09/08/21 FINDINGS: There is no evidence of acute intracranial hemorrhage, extra-axial collection, mass effect, midline shift, herniation or hydrocephalus. The ventricles, sulci and cisterns are age appropriate. The trujillo-white differentiation is intact. Patchy periventricular and subcortical white matter hypoattenuation is nonspec ific but may be related to small vessel ischemic disease. Minimal bilateral ethmoid mucoperiosteal thickening. Otherwise, the visualized paranasal sinuses and mastoid air cells are clear. The surrounding soft tissues and osseous structures are unremarkable. IMPRESSION: 1. No CT evidence of acute intracranial abnormality. If there is clinical concern for acute ischemia, MRI is recommended for further evaluation. HS:Y ATED BY: ARLINE BROCK DO DICTATED DATE/TIME: 06/30/24917 SIGNED BY: ARLINE BROCK DO SIGNED DATE/TIME: 06/30/24917 CC: Patient alert. Complaining of dizziness. History of TIA vertigo. Vitals stable. Answering all questions. Has good muscle strength. Reviewed her previous visit. Blood pressure elevated. Saturation pristine on room air. Was given labetalol. Explained to the patient. Continue cardiac monitoring. She will need MRI. Time of 1ST Reevaluation: 08:52 Reevaluation 1ST: Unchanged Patient Education/Counseling: Diagnosis, Treatment Family Education/Counseling: No Family Present Departure 1 Departure Time of Disposition: 08:53 Impression: Primary Impression: Autonomic disorder Additional Impression: Hypertension Qualified Codes: I10 - Essential (primary) hypertension Disposition: 09 ADMITTED INPATIENT Admit to: Med Surg Condition: Guarded e-Prescriptions No Active Prescriptions or Reported Meds Critical Care Note Critical Care Time?: Yes (45 min-critical care time only) Stability Stability form required: No Heart Score Heart Score: Heart Score Response (Comments) Value History Slightly Suspicious 0 EKG Normal 0 Age 45-64 1 Risk Factors 1 or 2 risk factors 1 Troponin Normal limit 0 Total 2 I personally scribed for GEOFF MILLAN MD ([email or web address]) on 06/30/24 at 08:32. Electronically submitted by [facility]grid [facility] I personally scribed for GEOFF MILLAN MD ([email or web address]) on 06/30/24 at 09:22. Electronically submitted by Ingrid Ramirez ([email or web address]). I personally scribed for GEOFF MILLAN MD ([email or web address]) on 06/30/24 at 11:00. Electronically submitted by Ingrid Ramirez [facility] GEOFF MILLAN MD Jun 30, 2024 08:32
[2024-06-30 08:48] VITALS: PULSE 77; RESP 19; O2SAT 97
[2024-06-30 08:51] LABS: Basophils # (auto) 0 10 ^3/uL (0-0.2); Basophils % (auto) 0.7 % (0.0-2.0); Eosinophils # (auto) 0.2 10 ^3/uL (0-0.8); Eosinophils % (auto) 3.6 % (0.0-7.0); Hematocrit 42.8 % (36.0-46.0); Hemoglobin 14.4 g/dL (12.2-16.2); Lymphocytes # (auto) 2.2 10 ^3/uL (0.4-5.4); Lymphocytes % (auto) 32.7 % (10.0-50.0); Mean Corpuscular Hemoglobin 27.4 pg (28.0-32.0); Mean Corpuscular Hgb Conc. 33.5 g/dL (32.0-36.0); Mean Corpuscular Volume 81.7 fL (80.0-100.0); Monocytes # (auto) 0.4 10 ^3/uL (0-1.3); Monocytes % (auto) 6.4 % (0.0-12.0); Neutrophils # (auto) 3.8 10 ^3/uL (1.6-8.6); Neutrophils % (auto) 56.6 % (37.0-80.0); Nucleated Red Blood Cells % 0.1 %; Platelet Count (auto) 299 10^3/uL (140-450); Red Blood Cells 5.24 10^6/uL (4.0-5.20); Red Cell Distribution Width 13.9 % (11.8-14.3); White Blood Cell 6.8 10^3/uL (4.4-10.8)
[2024-06-30] MEDS: LORazepam 2MG/ML-1ML VIAL IV ONE ×2 (08:52→12:30)
[2024-06-30] MEDS: SODIUM CHLORIDE 0.9% 1,000 ML IV ONE ×2 (08:52→08:53)
[2024-06-30 08:59] LABS: Chloride 107 mmol/L (98-107); Potassium 4.3 mmol/L (3.5-5.1); Sodium 138 mmol/L (136-145)
[2024-06-30 09:00] LABS: Anion Gap 5 (5-15); Carbon Dioxide 26 mmol/L (20-31)
[2024-06-30 09:01] LABS: Calcium 10.4 mg/dL (8.7-10.4)
[2024-06-30 09:06] LABS: BUN/Creatinine Ratio 15.8 (10.0-20.0); Blood Urea Nitrogen 12 mg/dL (9-23); Glucose 100 mg/dL (74-106)
[2024-06-30] MEDS: LABETALOL HCL 20 MG/4 ML VL IV ONE (09:07)
--- NOTE | 2024-06-30 09:21 | DVH ---
EXAM: CT HEAD WITHOUT CONTRAST INDICATION: tia TECHNIQUE: CT of the head without intravenous contrast. Radiation Dose Information: CT Dose: CTDI volume is 59.79 mGy. Dose-length product is 1058.56 mGy*cm The dose indicators for CT are the volume Computed Tomography (CT) Dose Index (CTDIvol) and the Dose Length Product (DLP), and are measured in units of mGy and mGy-cm, respectively. These indicators are not patient dose, but values generated from the CT scanner acquisition factors. The report includes radiation exposure data for exposures received during this examination. COMPARISON: HEAD WITHOUT CONTRAST on DOS: 09/08/21 FINDINGS: There is no evidence of acute intracranial hemorrhage, extra-axial collection, mass effect, midline s hift, herniation or hydrocephalus. The ventricles, sulci and cisterns are age appropriate. The trujillo-white differentiation is intact. Patchy periventricular and subcortical white matter hypoattenuation is nonspecific but may be related to small vessel ischemic disease. Minimal bilateral ethmoid mucoperiosteal thickening. Otherwise, the visualized paranasal sinuses and mastoid air cells are clear. The surrounding soft tissues and osseous structures are unremarkable. IMPRESSION: 1. No CT evidence of acute intracranial abnormality. If there is clinical concern for acute ischemia, M RI is recommended for further evaluation. HS:Y
[2024-06-30] MEDS: MECLIZINE HCL 25 MG TAB PO ONE (10:24)
[2024-06-30 10:52] LABS: Urine Bacteria None Seen /hpf (None Seen)
[2024-06-30 11:10] LABS: Urine Blood Negative /uL (Negative); Urine Clarity Clear (Clear); Urine Color Light-Yellow (Yellow); Urine Protein, UAD Negative (Negative); Urine Specific Gravity 1.009 (1.001-1.035); Urine Urobilinogen Normal (Negative); Urine WBC 2 /hpf (0 - 5)
[2024-06-30] MEDS: SODIUM CHLORIDE 0.9% 1,000 ML IV SCH (11:30)
[2024-06-30] MEDS ORDERED: ONDANSETRON HCL 4 MG/2 ML VIAL IV PRN (11:30)
[2024-06-30] MEDS ORDERED: ACETAMINOPHEN 325 MG TAB PO PRN (11:30)
[2024-06-30] MEDS ORDERED: cloNIDine HCL 0.1 MG TAB PO PRN (11:30)
[2024-06-30] MEDS ORDERED: MECLIZINE HCL 25 MG TAB PO PRN (11:30)
[2024-06-30] MEDS ORDERED: DOCUSATE SOD 100 MG CAP PO PRN (11:30)
[2024-06-30] MEDS ORDERED: HYDROcodone-ACET 5/325MG TAB PO PRN (11:30)
--- NOTE | 2024-06-30 12:05 | DVHHP2 ---
History of Present Illness Reason for Visit: Dizziness and giddiness History of Present Illness The patient is a 49-year-old female with past medical history of vertigo, TIA, and hypertension who presented to [facility] ED with complaint of dizziness. Patient reports symptoms progressively get worse, unable to get up without feeling dizzy, describes dizzy sensation as everything spinning around her, getting worse that prompted this visit. Patient was seen and evaluated in the ED, laboratory data shows WBC 6.8, platelets 299, sodium 138, potassium 4.3, BUN 12, creatinine 0.76, glucose 100, blood pressure 134/80, heart rate 77, temperature 98.6 F, O2 saturation 97% on room air. Head CT showed no evidence of acute intracranial abnormality. Please see medication orders section in the computer. On my assessment, patient denied chest pain, no headache, no diaphoresis, no palpitations, no shortness of breaths, no nausea, no vomiting, no fever, no chills. No other modifying factor or other associated signs and symptoms noted. Patient was admitted for further evaluation and medical management. Past Medical History HTN, TIA, Vertigo Past Surgical History Denies all surgeries Family History Reviewed, noncontributory to the management of this case. Past Social History The patient lives at home, denies smoking, alcohol or illicit drugs abuse. Review of Systems Constitutional: Yes: Weakness; No: Fever, Chills, Sweats, Malaise, Other Eyes: No: Pain, Vision change, Conjunctivae inflammation, Eyelid inflammation, Other, Redness ENT: No: Ear pain, Ear discharge, Nose pain, Nose discharge, Nose congestion, Mouth pain, Mouth swelling, Throat pain, Throat swelling, Other Respiratory: No: Cough, Dry, Shortness of breath, SOB with excertion, Wheezing, Hemoptysis, Pleuritic Pain, Sputum, Wheezing, Other Cardiovascular: No: Chest Pain, Palpitations, Orthopnea, Paroxysmal Noc. Dyspnea, Edema, Lt Headedness, Other Gastrointestinal: No: Nausea, Vomiting, Abdominal Pain, Diarrhea, Constipation, Melena, Hematochezia, Other Genitourinary: No Dysuria, No Frequency, No Incontinence, No Hematuria, No Retention, No Other Musculoskeletal: No: other, neck pain, shoulder pain, arm pain, back pain, hand pain, leg pain, foot pain Skin: No: Rash, Lesions, Jaundice, Bruising, Other Neurological: Other (Dizziness); No: Weakness, Numbness, Incoordination, Change in speech, Confusion, Seizures Allergies: Coded Allergies: NO KNOWN ALLERGIES (Unverified , 08/29/22) Medications Current Medications Medications Dose Ordered Sig/Fadia Route Start Time Stop Time Status Last Admin Dose Admin Famotidine 20 mg DAILY IV 07/01/24 10:00 UNV Lisinopril 20 mg DAILY PO 07/01/24 10:00 Clonidine HCl 0.1 mg Q4HP PRN PO 06/30/24 11:30 Meclizine HCl 25 mg Q8HPRN PRN PO 06/30/24 11:30 Sodium Chloride 1,000 ml @ 60 mls/hr [id number] IV 06/30/24 11:30 Acetaminophen/ Hydrocodone Bitart 1 tab Q4HP PRN PO 06/30/24 11:30 Ondansetron HCl 4 mg Q4HP PRN IV 06/30/24 11:30 Docusate Sodium 100 mg BIDPRN PRN PO 06/30/24 11:30 Acetaminophen 650 mg Q6HP PRN PO 06/30/24 11:30 Exam Vital Signs Vital Signs Date Time Temp Pulse Resp B/P (MAP) Pulse Ox O2 Delivery O2 Flow Rate FiO2 06/30/24 08:48 77 19 97 Room Air* 0 21 06/30/24 08:48 134/80 (98) 06/30/24 08:15 98.6 General Appearance: Alert, Oriented X3, Cooperative, No acute distress HEENT: Atraumatic, PERRLA, EOMI, Mucous membr. moist/pink Respiratory: Clear to auscultation, Normal air movement Cardiovascular: Regular rate, Normal S1, Normal S2, No murmurs Abdominal: Normal bowel sounds, Soft, No tenderness, No hepatospenomegaly, No masses Extremities: No clubbing, No cyanosis, No edema, Normal pulses, No tenderness/swelling Skin: No rashes, No breakdown, No significant lesion Neuro: Normal speech, Normal tone, Sensation intact, Cranial nerves 3-12 NL, Reflexes 2+, Other (Generalized weakness) Psych/Mental Status: Mental status NL, Mood NL Labs/Xrays Labs Test 06/30/24 09:40 06/30/24 08:36 Range/Units Urine Color Light-yellow Yellow Urine Clarity Clear Clear Urine pH 6.0 5.0-9.0 Urine Specific [place] 1.009 1.001-1.035 Urine Protein Negative Negative Urine Ketones Negative Negative Urine Blood Negative Negative /uL Urine Nitrite Negative Negative Urine Bilirubin Negative Negative Urine Urobilinogen Normal Negative mg/dL Urine Leukocyte Esterase Negative Negative /uL Urine RBC <1 0 - 4 /hpf Urine WBC 2 0 - 5 /hpf Urine Squamous Epithelial Cells Few <5 /hpf Urine Bacteria None seen None Seen /hpf Urine Glucose Normal Normal mg/dL White Blood Count 6.8 4.4-10.8 10^3/uL Red Blood Count 5.24 H 4.0-5.20 10^6/uL Hemoglobin 14.4 12.2-16.2 g/dL Hematocrit 42.8 36.0-46.0 % Mean Corpuscular Volume 81.7 80.0-100.0 fL Mean Corpuscular Hemoglobin 27.4 L 28.0-32.0 pg Mean Corpuscular Hemoglobin Concent 33.5 32.0-36.0 g/dL Red Cell Distribution Width 13.9 11.8-14.3 % Platelet Count 299 140-450 10^3/uL Mean Platelet Volume 8.5 6.9-10.8 fL Neutrophils (%) (Auto) 56.6 37.0-80.0 % Lymphocytes (%) (Auto) 32.7 10.0-50.0 % Monocytes (%) (Auto) 6.4 0.0-12.0 % Eosinophils (%) (Auto) 3.6 0.0-7.0 % Basophils (%) (Auto) 0.7 0.0-2.0 % Neutrophils # (Auto) 3.8 1.6-8.6 10 ^3/uL Lymphocytes # (Auto) 2.2 0.4-5.4 10 ^3/uL Monocytes # (Auto) 0.4 0-1.3 10 ^3/uL Eosinophils # (Auto) 0.2 0-0.8 10 ^3/uL Basophils # (Auto) 0 0-0.2 10 ^3/uL Nucleated Red Blood Cells 0.1 % Sodium Level 138 136-145 mmol/L Potassium Level 4.3 3.5-5.1 mmol/L Chloride Level 107 98-107 mmol/L Carbon Dioxide Level 26 20-31 mmol/L Anion Gap 5 5-15 Blood Urea Nitrogen 12 9-23 mg/dL Creatinine 0.76 0.550-1.02 mg/dL Glomerular Filtration Rate Calc 95 >90 mL/min BUN/Creatinine Ratio 15.8 10.0-20.0 Serum Glucose 100 74-106 mg/dL Calcium Level 10.4 8.7-10.4 mg/dL PATIENT: LOLLY LLOYD ACCT: [id number] UNIT: [id number] : 1975 LOC: ER ROOM / BED: / AGE / SEX: 49 / F ADM STATUS: REG ER SERVICE 6 ORDERING PHYSICIAN: GEOFF MILLAN MD PROCEDURE(s): HWOCT - HEAD WITHOUT CONTRAST REASON: tia ORDER NUMBER(s): [id number], ACCESSION NUMBER(s): [id number] EXAM: CT HEAD WITHOUT CONTRAST INDICATION: tia TECHNIQUE: CT of the head without intravenous contrast. Radiation Dose Information: CT Dose: CTDI volume is 59.79 mGy. Dose-length product is 1058.56 mGy*cm The dose indicators for CT are the volume Computed Tomography (CT) Dose Index (CTDIvol) and the Dose Length Product (DLP), and are measured in units of mGy and mGy-cm, respectively. These indicators are not patient dose, but values generated from the CT scanner acquisition factors. The report includes radiation exposure data for exposures received during this examination. COMPARISON: HEAD WITHOUT CONTRAST on DOS: 09/08/21 FINDINGS: There is no evidence of acute intracranial hemorrhage, extra-axial collection, mass effect, midline shift, herniation or hydrocephalus. The ventricles, sulci and cisterns are age appropriate. The trujillo-white differentiation is intact. Patchy periventricular and subcortical white matter hypoattenuation is nonspecific but may be related to small vessel ischemic disease. Minimal bilateral ethmoid mucoperiosteal thickening. Otherwise, the visualized paranasal sinuses and mastoid air cells are clear. The surrounding soft tissues and osseous structures are unremarkable. IMPRESSION: 1. No CT evidence of acute intracranial abnormality. If there is clinical concern for acute ischemia, MRI is recommended for further evaluation. ORDERING PHYSICIAN: GEOFF MILLAN MD PROCEDURE(s): MBHL - BRAIN HEAD WO CONTRAST REASON: [email or web address] ORDER NUMBER(s): [id number], ACCESSION NUMBER(s): [id number] MRI BRAIN WITHOUT CONTRAST CLINICAL HISTORY: [email or web address] TECHNIQUE: Multiplanar, multisequence MR images of the brain without intravenous contrast. Comparison: CT HEAD WITHOUT CONTRAST on DOS: 06/30/24, HEAD WITHOUT CONTRAST on DOS: 09/08/21 FINDINGS:[Findings] There is no restricted diffusion. There are mild chronic small-vessel ischemic changes in the supratentorial white matter. There is no evidence of hemorrhage, mass, mass effect or midline shift. There is no hydrocephalus or extra-axial fluid collection. The visualized intracranial vasculature demonstrates appropriate flow-voids. The sagittal midline structures appear unremarkable. The craniocervical junction is within normal limits. The calvarium demonstrates normal marrow signal. There is mild mucosal thickening in the maxillary sinuses. The mastoid air cells are clear. IMPRESSION: 1. There is no acute intracranial process. 2. Mild chronic small-vessel supratentorial white matter ischemic changes. ORDERING PHYSICIAN: BESSY REMY MD PROCEDURE(s): CARCL - CAROTID DUPLX W COLOR DOP REASON: sTROKE ORDER NUMBER(s): [id number], ACCESSION NUMBER(s): [id number] Carotid Duplex Date: 06/30/2024 03:12 PM Clinical History: sTROKE Comparison: None Technique: Duplex Doppler evaluation of the extracranial carotid and vertebral arteries including color Doppler and spectral/pulsed waveform analysis was performed. Findings: RIGHT SIDE: The peak systolic velocities are 98 cm/s in the distal CCA and 96 cm/s in the proximal ICA.The ICA/CCA ratio is normal. The external carotid artery is patent with peak systolic velocity of 107 cm/s proximally. There is appropriate antegrade flow in the right vertebral artery. LEFT SIDE: The peak systolic velocities are 93 cm/s in the distal CCA and 84 cm/s in the proximal ICA. The ICA/CCA ratio is normal. The external carotid artery is patent with peak systolic velocity of 104 cm/s proximally. There is appropriate antegrade flow in the left vertebral artery. IMPRESSION: 1. No hemodynamically significant stenosis noted in the right carotid system. 2. No hemodynamically significant stenosis noted in the left carotid system. Assessment/Plan Assessment/Plan Dizziness and giddiness Generalized weakness Plan 1. Admit to telemetry unit 2. Breathing treatment 3. Pain control management 4. Management of fluids and electrolytes 5. Consultation for Neurology/hospitalist 6. Diagnostic tests head CT 7. DVT prophylaxis-on SCDs 8. Repeat labs CBC, CMP in a.m. 9. Continue with current medical management 10. Treatment plan discussed with patient and RN. Patient verbalized understanding. Plan discussed with: Patient, Other (RN) My Orders Orders - LATA ANDERS DNP Procedure Category Date Status Time Famotidine Injection PHA 07/01/24 Logged (Pepcid Injection) 10:00 Lisinopril Tablet PHA 07/01/24 In Process (Zestril Tablet) 10:00 Clonidine Hcl Tablet PHA 06/30/24 In Process (Catapres Tablet) 11:30 Meclizine Tablet PHA 06/30/24 In Process (Antivert Tablet) 11:30 Allergies [place] 06/30/24 In Process 11:23 Code Status CODE 06/30/24 Transmitted 11:23 Sodium Chloride 0.9% PHA 06/30/24 In Process 11:30 Oxygen Per Hour RT 06/30/24 Transmitted 11:23 Hydrocodone-Acet PHA 06/30/24 In Process 5/325mg Tab ([place] 11:30 Ondansetron Hcl PHA 06/30/24 In Process (Zofran) 11:30 Docusate Sodium PHA 06/30/24 In Process Capsule (Colace 11:30 Fall Risk Precautions [place] 06/30/[address] 11:23 Complete Blood Count LAB 07/01/24 Verified 04:00 Comprehensive LAB 07/01/24 Verified Metabolic Panel 04:00 Cardiac DIET 06/30/24 Transmitted Diet-2gna,Lofat,Lochol Lunch Condition: Serious [place] 06/30/24 In Process 11:23 Acetaminophen Tablet PHA 06/30/24 In Process (Tylenol Tablet) 11:30 Sequential [place] 06/30/24 In Process Compression Device Problem List: (1) Dizziness and giddiness (2) Generalized weakness Date of Service: Jun 30, 2024 Billing Provider: LATA ANDERS DNP Common Visit Codes: 20251-IGMDISR INP/OBS CARE (HIGH) LATA ANDERS DNP Jun 30, 2024 12:05
[2024-06-30] MEDS ORDERED: NITROGLYCERIN 0.4 MG SL TAB SL PRN (12:15)
[2024-06-30] MEDS ORDERED: MORPHINE SULFATE INJ 2 MG/ml SYRG IV PRN (12:15)
--- NOTE | 2024-06-30 13:18 | DVH ---
MRI BRAIN WITHOUT CONTRAST CLINICAL HISTORY: cvavsvertigo TECHNIQUE: Multiplanar, multisequence MR images of the brain without intravenous contrast. Comparison: CT HEAD WITHOUT CONTRAST on DOS: 06/30/24, HEAD WITHOUT CONTRAST on DOS: 09/08/21 FINDINGS: [Findings] There is no restricted diffusion. There are mild chronic small-vessel ischemic changes in the suprate ntorial white matter. There is no evidence of hemorrhage, mass, mass effect or midline shift. There i s no hydrocephalus or extra-axial fluid collection. The visualized intracranial vasculature demonstra maria esther appropriate flow-voids. The sagittal midline structures appear unremarkable. The craniocervical j unction is within normal limits. The calvarium demonstrates normal marrow signal. There is mild mucos al thickening in the maxillary sinuses. The mastoid air cells are clear. IMPRESSION: 1. There is no acute intracranial process. 2. Mild chronic small-vessel supratentorial white matter ischemic changes. HS:Y
[2024-06-30 13:48] VITALS: BP 137/89; PULSE 86; RESP 18; TEMP 97.5; O2SAT 99
[2024-06-30] MEDS ORDERED: VALS1TAB57 PO (14:33)
[2024-06-30] MEDS ORDERED: FAMO20TA10 PO (14:33)
--- NOTE | 2024-06-30 14:45 | ECG ---
[facility] Test Date: 2024-06-30 Test Time: 08:16:10 Pat Name: LOLLY LLOYD Department: ER Room: 0202T Gender: F Assistant Bookkeeper: WILBER : 1975 Requested By: GEOFF MILLAN Order Number: [id number] Reading MD: Measurements Intervals [place] Rate: 75 P: 4 SC: 147 QRS: 28 QRSD: 88 T: 50 QT: 406 QTc: 454 Interpretive Statements Sinus rhythm Please click the below link to view image of tracing.
--- NOTE | 2024-06-30 15:09 | DVHPN2 ---
Progress Note Date Seen: Jun 30, 2024 Medical Necessity Reason Pt with a Central, PICC or Fol: No Subjective Patient reports: Other (Patient continues to feel dizzy ) Review of Systems: HEENT:Normal, CVS:Normal, RESPIRATORY:Normal, GI:Normal, :Normal, MSK:Normal, NEURO:Normal Objective vital signs Vital Sign Date Time Temp Pulse Resp B/P (MAP) Pulse Ox O2 Delivery O2 Flow Rate FiO2 06/30/24 14:01 Room Air* 0 21 06/30/24 14:01 06/30/24 13:48 97.5 86 18 99 97.5 medications Current Medications Medications Dose Ordered Sig/Fadia Route Start Time Stop Time Status Last Admin Dose Admin Famotidine 20 mg DAILY IV 07/01/24 10:00 Lisinopril 20 mg DAILY PO 07/01/24 10:00 Clonidine HCl 0.1 mg Q4HP PRN PO 06/30/24 11:30 Meclizine HCl 25 mg Q8HPRN PRN PO 06/30/24 11:30 Sodium Chloride 1,000 ml @ 60 mls/hr [id number] IV 06/30/24 11:30 Acetaminophen/ Hydrocodone Bitart 1 tab Q4HP PRN PO 06/30/24 11:30 Ondansetron HCl 4 mg Q4HP PRN IV 06/30/24 11:30 Docusate Sodium 100 mg BIDPRN PRN PO 06/30/24 11:30 Acetaminophen 650 mg Q6HP PRN PO 06/30/24 11:30 Nitroglycerin 0.4 mg Q5MINP PRN SL 06/30/24 12:15 Morphine Sulfate 2 mg Q30M PRN IV 06/30/24 12:15 Examination: GENERAL:Normal, HEENT:Normal, NECK:Normal, LUNGS:Normal, CVS:Normal, ABDOMEN:Normal, MSK:Normal, SKIN:Normal, NEURO:Normal, :Normal laboratory and microbiology Laboratory Tests 06/30/24 08:36 Test 06/30/24 08:36 Range/Units Serum Glucose 100 74-106 mg/dL Problem List/Assessment/Plan Problem List/Assessment/Plan Acute dizziness - rule out stroke. Head CT, MRI reviewed. Carotid doppler. Neurology consult.TSH. Vitamin B12. Meclizine PRN Hypertensive urgency - Improved. Orthostatic vitals ordered. Plan discussed with: Patient My Orders My Orders Orders - BESSY REMY MD Procedure Category Date Status Time Carotid Duplx W Color US 06/30/24 Logged DOP 14:59 Thyroid Stimulating LAB 06/30/24 Transmitted Hormone 14:59 Vitamin B12 LAB 06/30/24 Transmitted 14:59 Date of Service: Jun 30, 2024 Billing Provider: BESSY REMY MD Common Visit Codes: [id number] INP/OBS CARE(HIGH) BESSY REMY MD Jun 30, 2024 15:09
--- NOTE | 2024-06-30 15:41 | DVH ---
Carotid Duplex Date: 06/30/2024 03:12 PM Clinical History: sTROKE Comparison: None Technique: Duplex Doppler evaluation of the extracranial carotid and vertebral arteries including color Doppler and spectral/pulsed waveform analysis was performed. Findings: RIGHT SIDE: The peak systolic velocities are 98 cm/s in the distal CCA and 96 cm/s in the proximal ICA.The ICA/CC A ratio is normal. The external carotid artery is patent with peak systolic velocity of 107 cm/s proximally. There is appropriate antegrade flow in the right vertebral artery. LEFT SIDE: The peak systolic velocities are 93 cm/s in the distal CCA and 84 cm/s in the proximal ICA.. The ICA /CCA ratio is normal. The external carotid artery is patent with peak systolic velocity of 104 cm/s proximally. There is appropriate antegrade flow in the left vertebral artery. IMPRESSION: 1. No hemodynamically significant stenosis noted in the right carotid system. 2. No hemodynamically significant stenosis noted in the left carotid system. 3. Reference: Radiology 2003; 229:[id number] HS:Y
[2024-06-30 16:00] VITALS: BP_SYST 124; BP_SYST 133; BP_SYST 136; BP_DIAS 74; BP_DIAS 82; BP_DIAS 84; PULSE 80; RESP 18; TEMP 98.2; O2SAT 100
[2024-06-30 20:00] VITALS: PULSE 71; PULSE 81
[2024-06-30 22:00] VITALS: BP_SYST 128; BP_SYST 130; BP_SYST 132; BP_DIAS 79; BP_DIAS 81; PULSE 98; RESP 18; TEMP 97.9; O2SAT 94
[2024-07-01] VITALS (7 sets, daily range): BP systolic 118–134; BP diastolic 62–95; PULSE 70–96; RESP 16–19; TEMP 36.6; O2SAT 96–98
[2024-07-01 05:43] LABS: Basophils # (auto) 0 10 ^3/uL (0-0.2); Basophils % (auto) 0.6 % (0.0-2.0); Eosinophils # (auto) 0.2 10 ^3/uL (0-0.8); Eosinophils % (auto) 3.5 % (0.0-7.0); Hematocrit 38.5 % (36.0-46.0); Hemoglobin 12.9 g/dL (12.2-16.2); Lymphocytes # (auto) 2.6 10 ^3/uL (0.4-5.4); Mean Corpuscular Hemoglobin 27.6 pg (28.0-32.0); Mean Corpuscular Hgb Conc. 33.5 g/dL (32.0-36.0); Mean Corpuscular Volume 82.6 fL (80.0-100.0); Monocytes # (auto) 0.5 10 ^3/uL (0-1.3); Monocytes % (auto) 7.6 % (0.0-12.0); Neutrophils # (auto) 3.5 10 ^3/uL (1.6-8.6); Neutrophils % (auto) 50.3 % (37.0-80.0); Platelet Count (auto) 286 10^3/uL (140-450); Red Blood Cells 4.66 10^6/uL (4.0-5.20); Red Cell Distribution Width 13.9 % (11.8-14.3); White Blood Cell 6.9 10^3/uL (4.4-10.8)
[2024-07-01 06:28] LABS: Alanine Aminotransferase 28 U/L (7-40); Alkaline Phosphatase 133 U/L (46-116); Anion Gap 4 (5-15); BUN/Creatinine Ratio 14.1 (10.0-20.0); Blood Urea Nitrogen 11 mg/dL (9-23); Calcium 9.6 mg/dL (8.7-10.4); Carbon Dioxide 28 mmol/L (20-31); Chloride 109 mmol/L (98-107); Glucose 108 mg/dL (74-106); Potassium 4.3 mmol/L (3.5-5.1); Sodium 141 mmol/L (136-145)
[2024-07-01 06:30] LABS: Albumin 4.1 g/dL (3.2-4.8); Aspartate Aminotransferase 14 U/L (13-40); Bilirubin, Total 0.4 mg/dL (0.2-1.0)
[2024-07-01 06:31] LABS: Total Protein 6.8 g/dL (5.7-8.2)
[2024-07-01] MEDS: FAMOTIDINE (10MG/ML) 2ML VL IV SCH (09:27)
--- NOTE | 2024-07-01 09:30 | DVHINCON2 ---
Date of service: Jul 01, 2024 Referring Physician Munira Reason for Consultation Dizziness History of Present Illness Ms. Plaza is a 49 years old right-handed female with a history of hypertension, endometriosis, she came to the [facility] on 06/30/2024 with a chief company of dizziness. At this time, she is alert and fully oriented, she provided the following history On getting up in the morning on 06/30 24, the patient was had a spell of intense dizziness, where everything was moving along with a roller coaster sensation, the event was about two 3 minutes, which keeps her from getting up in the bed. She was noticed it was time when she gets up, she was have similar dizzy spell. There was no associated vision changes, hearing changes, she was chronic 10 answers which has not had changes recently, she was no focal weakness numbness About four years ago, she had similar dizziness/spinning sensation, the patient was admitted to the [facility] four days, and her symptoms improved, but since then, 2-3 times monthly she has similar dizzy/spinning spell which happens when she is moving or sitting still About 10 years ago, she had similar dizziness/spinning spell, which resolved in 2-3 weeks without specific treatment I have discussed with Urinalysis, 06/30/2024: Unremarkable CBC, 07/01/2024: Unremarkable CMP, 07/01/2024: Unremarkable HGB A1c, 02/2024: 5.5 TG/HDL/LDL/HDL, 02/2024: 169/206/141/48 Vitamin B12, 06/30/24:531 Folic acid, 03/07/2024: 17.01 TSH, 06/30/2024: 2.08 Carotid Doppler, 06/30/2024: 1. No hemodynamically significant stenosis noted in the right carotid system. 2. No hemodynamically significant stenosis noted in the left carotid system. CT head, 06/30/2024: No CT evidence of acute intracranial abnormality. If there is clinical concern for acute ischemia, MRI is recommended for further evaluation. MRI head, 06/30/24: 1. There is no acute intracranial process. 2. Mild chronic small-vessel supratentorial white matter ischemic changes Past Medical History Hypertension, endometriosis Past Surgical History , endometrial ablation Family History: Stent MOTHER Family History Hypertension Social History Smoker: Non-Smoker Alcohol: Denies ETOH Use Drugs: Denies Drug Use Lives In: Home Allergies: Coded Allergies: NO KNOWN ALLERGIES (Unverified , 08/29/22) Home Meds Reported Medications Famotidine (PEPCID TABLET) 20 Mg Tb, 1 TAB PO BID 06/30/24 Valsartan (Valsartan) 80 Mg Tab, 1 TAB PO DAILY 06/30/24 Current Medications Current Medications Medications (Trade) Dose Ordered Sig/Fadia Route PRN Reason Start Time Stop Time Status Last Admin Famotidine (Pepcid Injection) 20 mg DAILY IV 07/01/24 10:00 Lisinopril (Zestril Tablet) 20 mg DAILY PO 07/01/24 10:00 Clonidine HCl (Catapres Tablet) 0.1 mg Q4HP PRN PO SBP>150 06/30/24 11:30 Meclizine HCl (Antivert Tablet) 25 mg Q8HPRN PRN PO DIZZINESS 06/30/24 11:30 Sodium Chloride 1,000 ml @ 60 mls/hr [id number] IV 06/30/24 11:30 Acetaminophen/ Hydrocodone Bitart ([place] 5/325MG Tab) 1 tab Q4HP PRN PO MODERATE PAIN (4-6 PAIN SCALE) 06/30/24 11:30 Ondansetron HCl (Zofran) 4 mg Q4HP PRN IV NAUSEA / VOMITING 06/30/24 11:30 Docusate Sodium (Colace Capsule) 100 mg BIDPRN PRN PO FOR CONSTIPATION 06/30/24 11:30 Acetaminophen (Tylenol Tablet) 650 mg Q6HP PRN PO PAIN SCALE 1-3 OR TEMP>100.4 06/30/24 11:30 Nitroglycerin (Ntrostat Sublingual) 0.4 mg Q5MINP PRN SL FOR CHEST PAIN 06/30/24 12:15 Morphine Sulfate 2 mg Q30M PRN IV FOR CHEST PAIN 06/30/24 12:15 Review of Systems As above, the other systems are negative Vital Signs Vital Signs Date Time Temp Pulse Resp B/P (MAP) Pulse Ox O2 Delivery O2 Flow Rate FiO2 07/01/24 08:01 16 Room Air* 0 21 07/01/24 05:00 97.6 72 118/62 (80) 96 97.6 125/66 (85) 122/68 (86) Physical Exam GENERAL EXAM: General: the patient is well developed and nourished. No acute distress. HEENT: Normocephalic, neck is supple, no carotid bruits. No mas RESPIRATORY: Normal respiratory effort with symmetrical lung expansion. Lungs clear to auscultation. CARDIOVASCULAR: Regular rate and rhythm with no murmurs. S1, S2. ABDOMEN: Soft, nontender, normal bowel sound NEUROLOGICAL: MENTAL STATUS: Awake and alert. Oriented to person, place, time and general circumstances. Able to give personal history SPEECH, LANGUAGE, HIGHER CORTICAL FUNCTION: no aphasia or dysathria. CRANIAL NERVES: #2: Intact visual francisco to confrontation. . #3,4,6: Pupils are equal, round and reactive. EOMs full and conjugate. No nystagmus. #5: Facial sensation intact in all three divisions bilaterally. Mandibular strength intact. #7: Facial muscles symmetrical and strength intact. #8: Hearing grossly normal to voice. #9,10: Uvula and soft palate rise in the midline. Swallow and voice are normal. #11: Trapezius and sternomastoid strength intact bilaterally. #12: Tongue midline. No fasciculations or atrophy. SENSATION: Sensation to touch and pinprick is normal. MOTOR: Normal tone in the upper and lower extremity. Normal muscle bulk. No fasciculations. No abnormal movements or posturing. Muscle strength of the major groups in the upper extremities is 5/5. Muscle strength of the major groups in the lower extremities is 5/5. REFLEXES: Deep tendon reflexes ared symmetrical. No pathological reflexes. CEREBELLAR/COORDINATION: Finger to nose isre normal bilaterally. GAIT/STATION: deferred. Labs/Diagnostic Data Labs Test 07/01/24 04:28 06/30/24 09:40 06/30/24 08:36 Range/Units White Blood Count 6.9 4.4-10.8 10^3/uL Red Blood Count 4.66 4.0-5.20 10^6/uL Hemoglobin 12.9 12.2-16.2 g/dL Hematocrit 38.5 # 36.0-46.0 % Mean Corpuscular Volume 82.6 80.0-100.0 fL Mean Corpuscular Hemoglobin 27.6 L 28.0-32.0 pg Mean Corpuscular Hemoglobin Concent 33.5 32.0-36.0 g/dL Red Cell Distribution Width 13.9 11.8-14.3 % Platelet Count 286 140-450 10^3/uL Mean Platelet Volume 9.0 6.9-10.8 fL Neutrophils (%) (Auto) 50.3 37.0-80.0 % Lymphocytes (%) (Auto) 38.0 10.0-50.0 % Monocytes (%) (Auto) 7.6 0.0-12.0 % Eosinophils (%) (Auto) 3.5 0.0-7.0 % Basophils (%) (Auto) 0.6 0.0-2.0 % Neutrophils # (Auto) 3.5 1.6-8.6 10 ^3/uL Lymphocytes # (Auto) 2.6 0.4-5.4 10 ^3/uL Monocytes # (Auto) 0.5 0-1.3 10 ^3/uL Eosinophils # (Auto) 0.2 0-0.8 10 ^3/uL Basophils # (Auto) 0 0-0.2 10 ^3/uL Nucleated Red Blood Cells 0.0 % Sodium Level 141 136-145 mmol/L Potassium Level 4.3 3.5-5.1 mmol/L Chloride Level 109 H 98-107 mmol/L Carbon Dioxide Level 28 20-31 mmol/L Anion Gap 4 L 5-15 Blood Urea Nitrogen 11 9-23 mg/dL Creatinine 0.78 0.550-1.02 mg/dL Glomerular Filtration Rate Calc 92 >90 mL/min BUN/Creatinine Ratio 14.1 10.0-20.0 Serum Glucose 108 H 74-106 mg/dL Calcium Level 9.6 8.7-10.4 mg/dL Total Bilirubin 0.4 0.2-1.0 mg/dL Aspartate Amino Transferase (AST) 14 13-40 U/L Alanine Aminotransferase (ALT) 28 7-40 U/L Alkaline Phosphatase 133 H 46-116 U/L Total Protein 6.8 5.7-8.2 g/dL Albumin 4.1 3.2-4.8 g/dL Urine Color Light-yellow Yellow Urine Clarity Clear Clear Urine pH 6.0 5.0-9.0 Urine Specific [place] 1.009 1.001-1.035 Urine Protein Negative Negative Urine Ketones Negative Negative Urine Blood Negative Negative /uL Urine Nitrite Negative Negative Urine Bilirubin Negative Negative Urine Urobilinogen Normal Negative mg/dL Urine Leukocyte Esterase Negative Negative /uL Urine RBC <1 0 - 4 /hpf Urine WBC 2 0 - 5 /hpf Urine Squamous Epithelial Cells Few <5 /hpf Urine Bacteria None seen None Seen /hpf Urine Glucose Normal Normal mg/dL Vitamin B12 Level 531 211-911 pg/mL Thyroid Stimulating Hormone (TSH) 2.08 0.55-4.78 uIU/mL Assessment Vertigo, with unremarkable MRI brain scan Likely this is a benign paroxysmal positional vertigo Rule out Meniere's disease, less likely Stroke/TIA, less likely Plan/Recommendation Monitoring Supportive treatment Telemetry Okay to use meclizine as needed basis, but avoid long-term use Consider [place]-Hallpike test if her problems persist Okay to discharge from a neurologic point of view I have googled reading material about BPPV for her Plan discussed with: Patient, Other JUNI GONSALEZ MD Jul 01, 2024 09:30
[2024-07-01] MEDS: LISINOPRIL 20 MG TAB PO SCH (09:33)
[2024-07-01] MEDS ORDERED: MECL25CH85 PO (10:29)
--- NOTE | 2024-07-01 13:35 | DVHDS2 ---
Discharge Summary Date of Admission Jun 30, 2024 at 12:04 Date of Discharge: Jul 01, 2024 Labs/Diagnostic Data: Laboratory Results Test 07/01/24 04:28 06/30/24 09:40 06/30/24 08:36 White Blood Count 6.9 10^3/uL (4.4-10.8) Red Blood Count 4.66 10^6/uL (4.0-5.20) Hemoglobin 12.9 g/dL (12.2-16.2) Hematocrit 38.5 % (36.0-46.0) Mean Corpuscular Volume 82.6 fL (80.0-100.0) Mean Corpuscular Hemoglobin 27.6 pg (28.0-32.0) Mean Corpuscular Hemoglobin Concent 33.5 g/dL (32.0-36.0) Red Cell Distribution Width 13.9 % (11.8-14.3) Platelet Count 286 10^3/uL (140-450) Mean Platelet Volume 9.0 fL (6.9-10.8) Neutrophils (%) (Auto) 50.3 % (37.0-80.0) Lymphocytes (%) (Auto) 38.0 % (10.0-50.0) Monocytes (%) (Auto) 7.6 % (0.0-12.0) Eosinophils (%) (Auto) 3.5 % (0.0-7.0) Basophils (%) (Auto) 0.6 % (0.0-2.0) Neutrophils # (Auto) 3.5 10 ^3/uL (1.6-8.6) Lymphocytes # (Auto) 2.6 10 ^3/uL (0.4-5.4) Monocytes # (Auto) 0.5 10 ^3/uL (0-1.3) Eosinophils # (Auto) 0.2 10 ^3/uL (0-0.8) Basophils # (Auto) 0 10 ^3/uL (0-0.2) Nucleated Red Blood Cells 0.0 % Sodium Level 141 mmol/L (136-145) Potassium Level 4.3 mmol/L (3.5-5.1) Chloride Level 109 mmol/L (98-107) Carbon Dioxide Level 28 mmol/L (20-31) Anion Gap 4 (5-15) Blood Urea Nitrogen 11 mg/dL (9-23) Creatinine 0.78 mg/dL (0.550-1.02) Glomerular Filtration Rate Calc 92 mL/min (>90) BUN/Creatinine Ratio 14.1 (10.0-20.0) Serum Glucose 108 mg/dL (74-106) Calcium Level 9.6 mg/dL (8.7-10.4) Total Bilirubin 0.4 mg/dL (0.2-1.0) Aspartate Amino Transferase (AST) 14 U/L (13-40) Alanine Aminotransferase (ALT) 28 U/L (7-40) Alkaline Phosphatase 133 U/L (46-116) Total Protein 6.8 g/dL (5.7-8.2) Albumin 4.1 g/dL (3.2-4.8) Urine Color Light-yellow (Yellow) Urine Clarity Clear (Clear) Urine pH 6.0 (5.0-9.0) Urine Specific [place] 1.009 (1.001-1.035) Urine Protein Negative (Negative) Urine Ketones Negative (Negative) Urine Blood Negative /uL (Negative) Urine Nitrite Negative (Negative) Urine Bilirubin Negative (Negative) Urine Urobilinogen Normal mg/dL (Negative) Urine Leukocyte Esterase Negative /uL (Negative) Urine RBC <1 /hpf (0 - 4) Urine WBC 2 /hpf (0 - 5) Urine Squamous Epithelial Cells Few /hpf (<5) Urine Bacteria None seen /hpf (None Seen) Urine Glucose Normal mg/dL (Normal) Vitamin B12 Level 531 pg/mL (211-911) Thyroid Stimulating Hormone (TSH) 2.08 uIU/mL (0.55-4.78) Other Laboratory Tests 07/01/24 04:28 Brief Hx & Hospital Course: Patient was here for dizziness. Stroke work up was done which was negative. Neurology was consulted. She was started on meclizine. She was cleared by neurology for discharge. Condition at Discharge: Stable Final Diagnosis/Problems List Acute dizziness - rule out stroke. Head CT, MRI reviewed. Carotid doppler. Neurology consult.TSH. Vitamin B12. Meclizine PRN Hypertensive urgency - Improved. Discharge Disposition: Home Discharge Instruct/Medications Diet: Regular Activity: No Restrictions, As Tolerated Follow Up/Referral: PCP in 1 week Discharge Statement: "Patient was advised to return to the ER or call 911 if any headaches, dizziness, shortness of breath, chest pain, abdominal pain, bleeding, fevers, or worsening of medical condition. Patient was counseled about treatment plan, medications, possible side effects, patientverbalized understanding. All questions were answered to the best of my ability. This discharge took greater then 30 minutes in planning, reviewing documentation, counseling the patient, and discussing with other team members." ASSESSMENT ASSESSMENT Assessment Acute dizziness - rule out stroke. Head CT, MRI reviewed. Carotid doppler. Neurology consult.TSH. Vitamin B12. Meclizine PRN Hypertensive urgency - Improved. Date of Service: Jul 01, 2024 Billing Provider: BESSY REMY MD Common Visit Codes: [id number] DISCH DAY >30min BESSY REMY MD Jul 01, 2024 13:35
== END 2024-07-01 15:05 | disposition home or self-care (01) | DRG 74 ==
LOC: EDBD 08:13 → ER 08:13 → TELE 12:04 → TELE-CENTR 14:02
PROVIDERS: ADMIT Nurse Practitioner Family; ATTEND Internal Medicine Pulmonary Disease
DX: G90.89 Other disorders of autonomic nervous system (principal); I16.0 Hypertensive urgency; Z86.73 Personal history of transient ischemic attack (TIA), and cerebral infarction without residual deficits; Z82.49 Family history of ischemic heart disease and other diseases of the circulatory system; Z79.899 Other long term (current) drug therapy
CPT/HCPCS: 36415; 70450; 70551; 80048; 80053; 81001; 82607; 84443; 85025; 93005; 93886; 96374; 96375; 99291; G0378; J3490